=== PATIENT | male | born 1975 | race Two or more races ===

== ENCOUNTER → 2025-05-01 | Emergency (ER) | payer OTHER ==
[~2025-05-01] VITALS: Ht 167.6 cm; Wt 83.9 kg
[~2025-05-01] MED LIST: CEFTRIAXONE SODIUM 1,000 MG VIAL IM ONE; CEFTRIAXONE SODIUM 1,000 MG VIAL ONE; CORTISPORIN EAR10 M1 OPHT; KETO10TA2 PO; KETOROLAC TROMETHAMINE 30 MG VIAL IM ONE; KETOROLAC TROMETHAMINE 30 MG VIAL ONE; METFORMIN HCL500 M3 PO; ROSUVASTATIN CAL5 MG PO
== END | disposition home or self-care (01) ==
LOC: ER 14:58
DX: H60.8X2 Other otitis externa, left ear (principal); E11.9 Type 2 diabetes mellitus without complications; Z79.84 Long term (current) use of oral hypoglycemic drugs